=== PATIENT | female | born 1980 | race Caucasian/White ===

== ENCOUNTER 2021-05-23 10:19 | Emergency (ER) | payer MEDICAID ==
[~2021-05-23] VITALS: Ht 160 cm; Wt 77.3 kg
[2021-05-23] MEDS ORDERED: ACETAMINOPHEN/CODEINE 300-30 MG TABLET PO ONE (11:30)
[2021-05-23] MEDS ORDERED: NEOMYCIN/POLYMYXIN B/HYDROCORT 10 ML OTIC SUSPENSION AS ONE (11:30)
[2021-05-23 11:46] VITALS: BP 152/76
== END 2021-05-23 11:48 | disposition home or self-care (01) ==
LOC: EMS 11:10
DX: H60.92 Unspecified otitis externa, left ear (principal); F17.210 Nicotine dependence, cigarettes, uncomplicated
CPT/HCPCS: 99283

== ENCOUNTER 2023-04-20 10:48 | Emergency (ER) | payer MEDICAID ==
[~2023-04-20] VITALS: Ht 154.9 cm; Wt 160.0 kg
[2023-04-20 12:00] VITALS: BP 135/89
== END 2023-04-20 12:20 | disposition home or self-care (01) ==
LOC: EMS 10:50
DX: R41.82 Altered mental status, unspecified (principal); F17.210 Nicotine dependence, cigarettes, uncomplicated; Z98.890 Other specified postprocedural states
CPT/HCPCS: 99283; 36415; G0480